=== PATIENT | female | born 1990 | race Caucasian/White ===

== ENCOUNTER 2018-11-29 06:05 | Day surgery (SDC) | payer SELFPAY ==
[2018-11-28 18:05] LABS: Hematocrit 40.4 % (33.0-51.0); Hemoglobin 13.4 g/dL (11.5-16.0); Mean Corpuscular HGB 29.5 pg (26.0-34.0); Mean Corpuscular HGB Conc 33.2 g/dL (31.5-36.5); Mean Corpuscular Volume 89 fL (80-100); Mean Platelet Volume 9.3 fL (9.1-12.4); Platelet Count 195 K/mm3 (150-400); RDW Coefficient Variation 12.8 % (11.7-14.2); RDW Standard Deviation 41.7 fL (35.1-46.3); Red Blood Cell Count 4.55 M/mm3 (3.80-5.20); White Blood Cell Count 9.27 K/mm3 (4.00-11.30)
[~2018-11-29] VITALS: Ht 149.9 cm; Wt 56.4 kg
[~2018-11-29 06:05] MED LIST: EXPECTA PRENAT1 EACH PO; FERR325 PO; HYDACE5 PO; MEDR150I; OXYACE5T; PROM25 PO; SULTRIDS PO
--- NOTE | 2018-11-29 06:52 | NUR ---
History, Chart, Medications and Allergies reviewed before start of procedure. Patient States Post-Procedure ride home has been arranged.
--- NOTE | 2018-11-29 09:58 | NUR ---
Discharge instructions reviewed with patient. Patient verbalizes understanding. Copy given to patient to take home. NO NEW BLEEDING ON PAD, NEW PAD GIVEN FOR PT. PT UP TO VOID, Discharged via wheelchair to private car for ride home.
== END 2018-11-29 10:00 | disposition home or self-care (01) ==
LOC: ORSCMMR 06:05 → ORD 07:30 → ORSCMMR 07:30
PROVIDERS: Obstetrics & Gynecology
PROC: 10A07Z6 Abortion of Products of Conception, Vacuum, Via Natural or Artificial Opening (ICD-10-PCS; principal; 2018-11-29 07:30)
DX: O02.1 Missed abortion (principal)
CPT/HCPCS: 36415; 84702; 85027; 86850; 86900; 86901; 88305; J0690; J1100; J2210; J2250; J2405; J2704; J3010; J7120

== ENCOUNTER → 2023-02-23 | Outpatient (CLI) | payer BC ==
[2023-02-23 09:47] LABS: Source, Urine Clean Catch
[2023-02-23 10:07] LABS: Appearance, Urine Clear (Clear); Bilirubin, Urine Neg (Neg); Blood, Urine 2+ (Neg); Color, Urine Yellow (P-Yellow); Glucose Qualitative, Urine NORM (Normal); Ketones, Urine Neg (Neg); Leukocyte Esterase, Urine Neg (Neg); Nitrite, Urine Neg (Neg); Protein, Urine Neg (Neg); Urobilinogen, Urine NORM (Normal)
[2023-02-23 10:08] LABS: Bacteria Not Seen /hpf; Mucus Light (0-Heavy); Red Blood Cells, Urine 0-2 /hpf (0-2); Squamous Epithelial Cells Mod /hpf (Few); White Blood Cells, Urine 0-2 /hpf (0-5)
== END ==
LOC: LAB SHORT 09:32 → LAB 09:32
PROVIDERS: Family Medicine
DX: R31.9 Hematuria, unspecified (principal); N30.00 Acute cystitis without hematuria
CPT/HCPCS: 81001